=== PATIENT | male | born 1950 | race Caucasian/White ===

== ENCOUNTER 2021-12-03 02:48 | Inpatient (IN) ==
[2021-12-03] MEDS ORDERED: MORPHINE 2 MG/1 ML SYRINGE IV PRN (06:14)
[2021-12-03 07:01] LABS: Basophils % 0.1 % (0.0-0.8); Eosinophils % 0.1 % (0.00-10.9); Hematocrit 35.2 VOL% (42.0-52.0); Hemoglobin 11.8 GM/DL (14.0-18.0); Immature Granulocytes % 0.8 %; Immature Granulocytes Absolute 0.06 #; Lymphocytes # 0.2 10*3/uL (1.4-4.0); Mean Corpuscular HGB Conc 33.5 GM/DL (32-36); Mean Corpuscular Volume 91.4 FL (87-102); Mean Platelet Volume 11.3 FL (9.6-12.0); Monocytes # 0.7 10*3/uL (0.11-0.8); Monocytes % 8.4 % (1.7-12.7); Neutrophils % 88.6 % (38.7-73.9); Platelet Count 175 T/CUMM (130-400); Red Blood Count 3.85 MC/CUMM (3.8-5.5); Red Cell Distribution Width 13.2 % (9.3-17.3)
[2021-12-03 07:27] LABS: Albumin 3.4 G/DL (3.4-5.0); Bilirubin,Total 3.3 MG/DL (0.20-1.00); Calcium 8.5 MG/DL (8.5-10.1); Osmolality,Calculated 284.3 MOS/KG (273-304); Potassium 2.8 MMOL/L (3.5-5.1); Total Protein 6.4 G/DL (6.4-8.2)
[2021-12-03] MEDS ORDERED: ONDANSETRON 4 MG/2 ML VIAL IV PRN (07:29)
[2021-12-03 07:32] LABS: Band Neutrophils 6 % (0-10); Lymphocytes 6 % (20-55); Platelet Estimate Adequate; Total Cells Counted 100
[2021-12-03] MEDS ORDERED: MAGNESIUM SULF RIDER 4 GM/100 ML PREMIX IV PRN (09:29)
[2021-12-03] MEDS ORDERED: POTASSIUM CHLORIDE 20 MEQ TABLET PO PRN (09:29)
[2021-12-03] MEDS ORDERED: MAGNESIUM SULF RIDER 2 GM/50 ML PREMIX IV PRN (09:29)
[2021-12-03] MEDS ORDERED: INDOMETHACIN SUPP 50 MG SUPP RECTAL ONE (11:10)
[2021-12-03] MEDS: POTASSIUM CHLORIDE RIDER 10 MEQ/100 ML PREMIX IV PRN ×3 (12:30→15:48)
[2021-12-03] MEDS: LACTATED RINGERS 1,000 ML IV SCH (13:28)
[2021-12-03] MEDS ORDERED: fentaNYL 100 MCG/2 ML VIAL ONE (13:34)
[2021-12-03] MEDS ORDERED: LIDOCAINE 2% 5 ML VIAL ONE (13:38)
[2021-12-03] MEDS ORDERED: SEVOFLURANE 1 UNIT/15 MINUTE INH ONE (13:38)
[2021-12-03] MEDS ORDERED: ROCURONIUM 50 MG/5 ML VIAL IV ONE (13:38)
[2021-12-03] MEDS ORDERED: ONDANSETRON 4 MG/2 ML VIAL ONE (13:38)
[2021-12-03] MEDS ORDERED: SUCCINYLCHOLINE 200 MG/10 ML VIAL ONE (13:38)
[2021-12-03] MEDS ORDERED: propofoL 200 MG/20 ML VIAL IV ONE (13:38)
[2021-12-03 14:06] LABS: INR 1.1; PT Patient Result 11.7 SECS (10.1-12.1)
[2021-12-03] MEDS ORDERED: SUGAMMADEX 200 MG/2 ML VIAL IV ONE (14:16)
[2021-12-03] MEDS ORDERED: PHENYLEPHRINE 1 MG/10 ML SYRINGE IV ONE (15:03)
[2021-12-03] MEDS ORDERED: POTASSIUM CHLORIDE 20 MEQ TABLET PO ONE (17:27)
[2021-12-03] MEDS: PIPERACILLIN/TAZOBACTAM 3,375 MG in SODIUM CHLORIDE 0.9% 100 ML IV SCH (21:31)
[2021-12-04 05:06] LABS: Basophils % 0.5 % (0.0-0.8); Eosinophils # 0.1 10*3/uL (0.0-0.87); Hematocrit 33.4 VOL% (42.0-52.0); Hemoglobin 11.1 GM/DL (14.0-18.0); Immature Granulocytes % 0.5 %; Immature Granulocytes Absolute 0.03 #; Lymphocytes # 0.5 10*3/uL (1.4-4.0); Lymphocytes % 6.9 % (21.2-54.2); Mean Corpuscular HGB Conc 33.2 GM/DL (32-36); Mean Corpuscular Volume 92.5 FL (87-102); Mean Platelet Volume 11.1 FL (9.6-12.0); Monocytes # 0.5 10*3/uL (0.11-0.8); Monocytes % 8.2 % (1.7-12.7); Neutrophils % 81.9 % (38.7-73.9); Platelet Count 152 T/CUMM (130-400); Red Blood Count 3.61 MC/CUMM (3.8-5.5); Red Cell Distribution Width 13.4 % (9.3-17.3); White Blood Count 6.6 T/CUMM (4-12)
[2021-12-04] MEDS: PIPERACILLIN/TAZOBACTAM 3,375 MG in SODIUM CHLORIDE 0.9% 100 ML IV SCH ×3 (05:07→20:48)
[2021-12-04 05:32] LABS: Albumin 2.9 G/DL (3.4-5.0); Bilirubin,Total 4.9 MG/DL (0.20-1.00); Calcium 8.6 MG/DL (8.5-10.1); Osmolality,Calculated 280.4 MOS/KG (273-304); Potassium 3.6 MMOL/L (3.5-5.1); Total Protein 6.3 G/DL (6.4-8.2)
[2021-12-04] MEDS ORDERED: INDOCYANINE GREEN 25 MG VIAL IV ONE (08:41)
[2021-12-04] MEDS ORDERED: KETOROLAC 15 MG/1 ML VIAL IV ONE (08:45)
[2021-12-04] MEDS ORDERED: MIDAZOLAM 2 MG/2 ML VIAL ONE (09:39)
[2021-12-04] MEDS ORDERED: fentaNYL 100 MCG/2 ML VIAL ONE (09:39)
[2021-12-04] MEDS ORDERED: BUPIVACAINE MPF 0.25% 10 ML VIAL ONE (09:49)
[2021-12-04] MEDS ORDERED: LIDOCAINE 1%/EPI INJ 20 ML VIAL ONE (09:54)
[2021-12-04] MEDS ORDERED: LACTATED RINGERS 1,000 ML IV SCH (10:00)
[2021-12-04] MEDS ORDERED: ONDANSETRON 4 MG/2 ML VIAL ONE (10:23)
[2021-12-04] MEDS ORDERED: LIDOCAINE 2% 5 ML VIAL ONE (10:23)
[2021-12-04] MEDS ORDERED: SEVOFLURANE 1 UNIT/15 MINUTE INH ONE (10:23)
[2021-12-04] MEDS ORDERED: ROCURONIUM 50 MG/5 ML VIAL IV ONE (10:23)
[2021-12-04] MEDS ORDERED: propofoL 200 MG/20 ML VIAL IV ONE (10:23)
[2021-12-04] MEDS ORDERED: PHENYLEPHRINE 1 MG/10 ML SYRINGE IV ONE (10:26)
[2021-12-04] MEDS ORDERED: TISSUE ADHESIVE 1 EACH APPLICATOR TOP ONE (10:26)
[2021-12-04] MEDS ORDERED: ePHEDrine 50 MG/ML VIAL ONE (10:34)
[2021-12-04] MEDS ORDERED: GLYCOPYRROLATE 0.4 MG/2 ML VIAL ONE ×2 (10:34→11:03)
[2021-12-04] MEDS ORDERED: LABETALOL 20 MG/4 ML SYRINGE IV ONE (11:02)
[2021-12-04] MEDS ORDERED: NEOSTIGMINE 10 MG/10 ML VIAL ONE (11:03)
[2021-12-04] MEDS ORDERED: HYDROmorphone 1 MG/1 ML SYRINGE ONE (11:29)
[2021-12-04] MEDS: HYDROmorphone 1 MG/1 ML SYRINGE IV PRN ×4 (11:30→11:45)
[2021-12-04] MEDS ORDERED: ONDANSETRON 4 MG/2 ML VIAL IV PRN (11:32)
[2021-12-04] MEDS ORDERED: MEPERIDINE 25 MG/1 ML VIAL IV PRN (11:32)
[2021-12-04] MEDS ORDERED: PROMETHAZINE INJ 25 MG in SODIUM CHLORIDE 0.9% 50 ML IV PRN (11:32)
[2021-12-04] MEDS ORDERED: diphenhydrAMINE 50 MG/1 ML VIAL IV PRN (11:32)
[2021-12-04] MEDS: LACTATED RINGERS 1,000 ML IV SCH (11:47)
[2021-12-04] MEDS: SODIUM CHLORIDE 0.45% 1,000 ML IV SCH (11:47)
[2021-12-04] MEDS ORDERED: HYDROmorphone 1 MG/1 ML SYRINGE IV PRN (12:29)
[2021-12-04] MEDS ORDERED: ACETAMINOPHEN 325 MG TABLET PO PRN (12:29)
[2021-12-04] MEDS: KETOROLAC 15 MG/1 ML VIAL IV PRN (20:48)
[2021-12-05] MEDS: SODIUM CHLORIDE 0.45% 1,000 ML IV SCH ×2 (00:46→05:13)
[2021-12-05 04:33] LABS: Basophils % 0.5 % (0.0-0.8); Eosinophils # 0.1 10*3/uL (0.0-0.87); Eosinophils % 1.9 % (0.00-10.9); Hemoglobin 10.8 GM/DL (14.0-18.0); Immature Granulocytes % 0.6 %; Immature Granulocytes Absolute 0.04 #; Lymphocytes # 0.9 10*3/uL (1.4-4.0); Lymphocytes % 14.1 % (21.2-54.2); Mean Corpuscular HGB Conc 32.7 GM/DL (32-36); Mean Corpuscular Volume 93.8 FL (87-102); Mean Platelet Volume 11.1 FL (9.6-12.0); Monocytes # 0.5 10*3/uL (0.11-0.8); Monocytes % 7.6 % (1.7-12.7); Neutrophils % 75.3 % (38.7-73.9); Platelet Count 147 T/CUMM (130-400); Red Blood Count 3.52 MC/CUMM (3.8-5.5); Red Cell Distribution Width 13.7 % (9.3-17.3); White Blood Count 6.3 T/CUMM (4-12)
[2021-12-05 05:10] LABS: Albumin 2.7 G/DL (3.4-5.0); Bilirubin,Total 1.5 MG/DL (0.20-1.00); Calcium 8.6 MG/DL (8.5-10.1); Osmolality,Calculated 278.5 MOS/KG (273-304); Potassium 3.5 MMOL/L (3.5-5.1); Total Protein 5.9 G/DL (6.4-8.2)
[2021-12-05] MEDS: PIPERACILLIN/TAZOBACTAM 3,375 MG in SODIUM CHLORIDE 0.9% 100 ML IV SCH (05:14)
[2021-12-05] MEDS: KETOROLAC 15 MG/1 ML VIAL IV PRN (05:17)
[2021-12-05] MEDS ORDERED: POTASSIUM CHLORIDE 20 MEQ TABLET PO ONE (09:00)
[2021-12-05] MEDS ORDERED: PANTOPRAZOLE 40 MG TABLET PO SCH (09:00)
[2021-12-05 11:25] VITALS: BP 127/45
== END 2021-12-05 12:39 | disposition home or self-care (01) | DRG 419 ==
LOC: SUATTDRO 04:59 → N.3E 04:59
PROVIDERS: ADMIT Internal Medicine; ATTEND Hospitalist
PROC: ERCPWSP (ICD-10-PCS; 2021-12-03 13:05)